=== PATIENT | male | born 1960 | race Caucasian/White ===

== ENCOUNTER → 2017-09-04 | Outpatient (CLI) | payer MEDICARE ==
[~2017-09-04] VITALS: Ht 170.2 cm; Wt 107.5 kg
[~2017-09-04] MED LIST: DOXYCYCLINE HYC50 MG PO; GLUCOPHAGE500 MG PO; HYDROCHLOROTH12.5 M3 PO; SINGULAIR10 MG PO; TRICOR145 MG PO; ZESTRIL20 MG PO
[2017-09-04 09:16] LABS: CHLORIDE 100 MEQ/L (99-109); CREATININE 1.1 MG/DL (0.6-1.3); GFR ESTIMATE (CALCULATED) > 59 mL/min/ (58.99-99999); GLUCOSE 173 mg/dL (70-99); SODIUM 134 MEQ/L (136-147); UREA NITROGEN (BUN) 17 mg/dL (9-23)
== END | disposition home or self-care (01) ==
LOC: AMB 08-14 07:00
PROVIDERS: Anesthesiology; Internal Medicine
PROC: 0DBP8ZX Excision of Rectum, Via Natural or Artificial Opening Endoscopic, Diagnostic (ICD-10-PCS; principal; 2017-09-04)
PROC: 0DBL8ZX Excision of Transverse Colon, Via Natural or Artificial Opening Endoscopic, Diagnostic (ICD-10-PCS; principal; 2017-09-04)
DX: Z12.11 Encounter for screening for malignant neoplasm of colon (principal); K62.1 Rectal polyp; D12.3 Benign neoplasm of transverse colon; K64.8 Other hemorrhoids; I10 Essential (primary) hypertension; Z82.49 Family history of ischemic heart disease and other diseases of the circulatory system
CPT/HCPCS: 80048; 82948; 88305; 93005